=== PATIENT | female | born 1990 | race African-American/Black ===

== ENCOUNTER 2019-07-22 13:56 | Emergency (ER) | payer MEDICAID ==
[~2019-07-22] VITALS: Ht 157.5 cm; Wt 45.0 kg
[~2019-07-22 13:56] MED LIST: AMOXICILLIN; IRON; PRENATAL VITS
[2019-07-22 14:02] VITALS: BP 109/69
== END 2019-07-22 16:50 | disposition left against medical advice (07) ==
LOC: ER 15:08
DX: Z53.21 Procedure and treatment not carried out due to patient leaving prior to being seen by health care provider (principal)

== ENCOUNTER 2023-01-13 07:33 | Emergency (ER) | payer OTHER, MEDICAID ==
[~2023-01-13] VITALS: Ht 154.9 cm; Wt 50.0 kg
[2023-01-13 07:36] VITALS: BP 128/84
[2023-01-13] MEDS ORDERED: BACL-141 MT (07:45)
== END 2023-01-13 07:48 | disposition home or self-care (01) ==
LOC: ER 07:33
DX: H92.03 Otalgia, bilateral (principal); M26.603 Bilateral temporomandibular joint disorder, unspecified
CPT/HCPCS: 99281

== ENCOUNTER 2024-05-29 09:02 | Emergency (ER) | payer OTHER ==
[~2024-05-29] VITALS: Ht 157.5 cm; Wt 45.4 kg
[~2024-05-29 09:02] MED LIST changes: +BACL-141 MT
[2024-05-29 09:08] VITALS: O2SAT 100
[2024-05-29 10:05] LABS: CLARITY URINE CLEAR (CLEAR); COLOR URINE YELLOW (YELLOW); GLUCOSE URINE NEGATIVE (NEGATIVE); KETONES URINE NEGATIVE (NEGATIVE); LEUKOCYTE ESTERASE URINE NEGATIVE (NEGATIVE); NITRITE URINE NEGATIVE (NEGATIVE); OCCULT BLOOD URINE NEGATIVE (NEGATIVE); PROTEIN URINE NEGATIVE (NEGATIVE); SPECIFIC GRAVITY URINE 1.003 (1.005-1.030); UROBILINOGEN URINE 0.2 E.U./dL (0.2-1.0)
[2024-05-29 11:28] VITALS: BP 121/76; PULSE 68; RESP 18; TEMP 36.83628; O2SAT 99
== END 2024-05-29 11:31 | disposition home or self-care (01) ==
LOC: ER 09:02
DX: R35.0 Frequency of micturition (principal)
CPT/HCPCS: 81003; 81025; 82962; 99283

== ENCOUNTER 2024-08-31 10:12 | Emergency (ER) | payer OTHER ==
[~2024-08-31] VITALS: Ht 157.5 cm; Wt 46.0 kg
[2024-08-31 10:13] VITALS: O2SAT 100
[2024-08-31 10:22] VITALS: BP 101/59; PULSE 68; RESP 16; TEMP 98.4; O2SAT 100
[2024-08-31] MEDS ORDERED: AMOX1TAB16 MT (11:35)
== END 2024-08-31 12:00 | disposition home or self-care (01) ==
LOC: ER 10:12
DX: J32.9 Chronic sinusitis, unspecified (principal); Z85.3 Personal history of malignant neoplasm of breast; Z90.13 Acquired absence of bilateral breasts and nipples
CPT/HCPCS: 99283; Z7610 ×3